=== PATIENT | male | born 1985 | race Caucasian/White ===

== ENCOUNTER 2023-02-03 01:14 | Emergency (ER) | payer BC ==
--- OUTSIDE RECORDS SUMMARY | 2023-02-03 01:19 | XMS REPORT | Continuity of Care Document ---
:1985 Author Organization [facility] t Address [address] [facility] [address] [place] [address] Care Team Providers Name Role Phone Unavailable Unavailable Unavailable Payers Payer Name Policy Type Policy Number Effective Date Expiration Date S ource Problems This patient has no known problems. Allergies, Adverse Reactions, Alerts Allergy Allergy Status Severity Reaction(s) Onset Inactive Treating Comm ents Source Name Type Date Date Clinician No Known DA Active U [facility] Allergie 12-28 s 00:00: [address] Medications This patient has no known medications. Procedures This patient has no known procedures. Results Test Description Test Time Test Comments Results Result Comments Source URINALYSIS COMPLETE 2018-12-29 08:05:00 Test Item Value Reference Range Interpretation Comme nts UA COLOR (test code = COLU) YELLOW YELLOW UA APPEARANCE (test code = APPU) CLEAR CLEAR UA GLUCOSE DIPSTICK (test code = DGLUU) NORMAL MG/DL NORMAL UA BILIRUBIN DIPSTICK (test code = BILU) NEGATIVE MG/DL NEGATIVE UA KETONE DIPSTICK (test code = KETU) NEGATIVE MG/DL NEGATIVE UA SPECIFIC GRAVITY (test code = SGU) 1.015 1.003-1.030 N UA BLOOD DIPSTICK (test code = ALONZO) 250 Krish/mm3 NEGATIVE A UA PH DIPSTICK (test code = CHRISTOPHE) 6.0 5.0-9.0 N UA PROTEIN DIPSTICK (test code = PROU) NEGATIVE MG/DL NEGATIVE UA UROBILINIOGEN DIPSTICK (test code = URO) NORMAL MG/DL NORMAL UA NITRITE DIPSTICK (test code = ELISE) NEGATIVE NEGATIVE UA LEUKOCYTE ESTERASE DIPSTICK (test code = LEUU) TRACE /mm3 NEGA TIVE A UA CULTURE NEEDED? (test code = UACULT) NO, WBC<10 Criteria Culture Chk SOURCE OF URINE: CLEAN CATCHUA [id number] 08:05:00 Test Item Value Reference Range Interpretation Comments UA RBC (test code = RBCU) >100 RBC/HPF 0-3 A UA WBC (test code = XWBCU) 5-9 WBC/HPF 0-5 A UA EPITHELIAL CELLS (test code = RARE EPI/HPF FEW EPIU) UA BACTERIA (test code = XBACU) RARE NONE UA MUCUS (test code = MUCU) SLIGHT #/LPF NONE SOURCE OF URINE: CLEAN CATCHURINALYSIS [id number] 07:46:00 Test Item Value Reference Range Interpretation Comments UA COLOR (test code = COLU) YELLOW YELLOW UA APPEARANCE (test code = CLEAR CLEAR APPU) UA GLUCOSE DIPSTICK (test code NORMAL MG/DL NORMAL = DGLUU) UA BILIRUBIN DIPSTICK (test NEGATIVE MG/DL NEGATIVE code = BILU) UA KETONE DIPSTICK (test code NEGATIVE MG/DL NEGATIVE = KETU) UA SPECIFIC GRAVITY (test code 1.015 1.003-1.030 N = SGU) UA BLOOD DIPSTICK (test code = 250 Krish/mm3 NEGATIVE A ALONZO) UA PH DIPSTICK (test code = 6.0 5.0-9.0 N CHRISTOPHE) UA PROTEIN DIPSTICK (test code NEGATIVE MG/DL NEGATIVE = PROU) UA UROBILINIOGEN DIPSTICK NORMAL MG/DL NORMAL (test code = URO) UA NITRITE DIPSTICK (test code NEGATIVE NEGATIVE = ELISE) UA LEUKOCYTE ESTERASE DIPSTICK TRACE /mm3 NEGATIVE A (test code = LEUU) UA CULTURE NEEDED? (test code Criteria Culture Chk = UACULT) SOURCE OF URINE: CLEAN CATCHUA [id number] 07:46:00 Test Item Value Reference Range Interpretation Comments UA RBC (test code = RBCU) RBC/HPF 0-3 UA WBC (test code = XWBCU) WBC/HPF 0-5 UA EPITHELIAL CELLS (test code = EPI/HPF FEW EPIU) UA BACTERIA (test code = XBACU) NONE SOURCE OF URINE: CLEAN CATCHURINALYSIS [id number] 07:46:00 Test Item Value Reference Range Interpretation Comments UA COLOR (test code = COLU) YELLOW YELLOW UA APPEARANCE (test code = CLEAR CLEAR APPU) UA GLUCOSE DIPSTICK (test code NORMAL MG/DL NORMAL = DGLUU) UA BILIRUBIN DIPSTICK (test NEGATIVE MG/DL NEGATIVE code = BILU) UA KETONE DIPSTICK (test code NEGATIVE MG/DL NEGATIVE = KETU) UA SPECIFIC GRAVITY (test code 1.015 1.003-1.030 N = SGU) UA BLOOD DIPSTICK (test code = 250 Krish/mm3 NEGATIVE A ALONZO) UA PH DIPSTICK (test code = 6.0 5.0-9.0 N CHRISTOPHE) UA PROTEIN DIPSTICK (test code NEGATIVE MG/DL NEGATIVE = PROU) UA UROBILINIOGEN DIPSTICK NORMAL MG/DL NORMAL (test code = URO) UA NITRITE DIPSTICK (test code NEGATIVE NEGATIVE = ELISE) UA LEUKOCYTE ESTERASE DIPSTICK TRACE /mm3 NEGATIVE A (test code = LEUU) UA CULTURE NEEDED? (test code Criteria Culture Chk = UACULT) SOURCE OF URINE: CLEAN CATCHUA [id number] 07:46:00 Test Item Value Reference Range Interpretation Comments UA RBC (test code = RBCU) RBC/HPF 0-3 UA WBC (test code = XWBCU) WBC/HPF 0-5 UA EPITHELIAL CELLS (test code = EPI/HPF FEW EPIU) UA BACTERIA (test code = XBACU) NONE SOURCE OF URINE: CLEAN CATCHBASIC METABOLIC [id number] 14:46:00 Test Item Value Reference Range Interpretation Comments SODIUM (test code = 142 MMOL/L 137-145 N NA) POTASSIUM (test code = 4.1 MMOL/L 3.5-5.1 N K) CHLORIDE (test code = 110 MMOL/L 98-107 H CL) CARBON DIOXIDE (test 25 MMOL/L 22-30 N code = CO2) GLUCOSE (test code = 99 MG/DL 74-106 N GLU) BLOOD UREA NITROGEN 9 MG/DL 9-20 N (test code = BUN) GLOMERULAR FILTRATION > 60 Report ing units: RATE (test code = GFR) ml/mi n/1.73 m2 (Modified MDRD Formula)Referen ce Range: > or = 6 0 ml/min/1.73 m2 CREATININE (test code 0.70 MG/DL 0.66-1.25 N = CREAT) CALCIUM (test code = 9.4 MG/DL 8.4-10.2 N CA) [id number] 14:46:00 Test Item Value Reference Range Interpretation Comments MAGNESIUM (test code = MAG) 2.2 MG/DL 1.6-2.3 N PROTHROMBIN [id number] 14:32:00 Test Item Value Reference Range Interpretation Comments PROTHROMBIN TIME 10.8 SECONDS 9.6-11.6 N PATIENT (test code = PTP) INTERNATIONAL NORMAL 1.0 0.8-1.1 N The INR is to be RATIO (test code = used only for INR) monitoring oral anticoagulantth erap y. INDICATION I NR VALUE ---- ---- ---- -------1. Prophylaxis, de ep venous thrombos is, including high risk surgery. 2.0 - 3.0 2. Prophylaxis, deep venous thrombosis, hip surgery, treatm ent for deep venous thrombosis or pulmonary prevention of systemic emboli sm in patients wit h valvular heart disease, atrial fibrillation, tissue heart va lve, or acute myocar dial infarction. 2.0 - 3.0 3. Rehab Office Coordinator al prosthesis hear t valves, recurre nt systemic emboli sm. 3.0 - 4.5 CBC W/AUTO [id number] 14:11:00 Test Item Value Reference Range Interpretation Comments WHITE BLOOD CELL (test code = 6.5 K/MM3 3.8-9.8 N WBC) RED BLOOD CELL (test code = 4.99 M/MM3 3.95-5.67 N RBC) HEMOGLOBIN (test code = HGB) 14.9 G/DL 12.4-16.7 N HEMATOCRIT (test code = HCT) 43.1 % 35.9-49.5 N MEAN CELL VOLUME (test code = 86 fL 81.7-96.1 N MCV) MEAN CELL HGB (test code = MCH) 29.9 pg 27.6-33.2 N MEAN CELL HGB CONCETRATION 34.6 % 32.9-35.5 N (test code = MCHC) RED CELL DISTRIBUTION WIDTH 12.3 % 12.1-15.2 N (test code = RDW) PLATELET COUNT (test code = 211 K/MM3 129-368 N PLT) MEAN PLATELET VOLUME (test code 9.1 fl 7.4-10.4 N = MPV) NEUTROPHIL % (test code = NT%) 47.3 % 43-75 N IMMATURE GRANULOCYTE % (test 0.2 % 0.0-2.0 N code = IG%) LYMPHOCYTE % (test code = LY%) 43.1 % 14-44 N MONOCYTE % (test code = MO%) 8.4 % 4-13 N EOSINOPHIL % (test code = EO%) 0.5 % 0-6 N BASOPHIL % (test code = BA%) 0.5 % 0-2 N NUCLEATED RBC % (test code = 0.0 % 0-1.0 N NRBC%) NEUTROPHIL # (test code = NT#) 3.09 K/mm3 2.0-7.6 N IMMATURE GRANULOCYTE # (test 0.01 x10 3/uL 0-0.03 N code = IG#) LYMPHOCYTE # (test code = LY#) 2.81 K/mm3 1.0-3.8 N MONOCYTE # (test code = MO#) 0.55 K/mm3 0.1-0.8 N EOSINOPHIL # (test code = EO#) 0.03 K/mm3 0.0-0.2 N BASOPHIL # (test code = BA#) 0.03 K/mm3 0.0-0.2 N NUCLEATED RBC # (test code = 0.00 K/mm3 0.0-0.1 N NRBC#) Notes Date/Time Note Provider Source 2018-12-29 13:44:00-00:00 [facility] ([facility]) Internal Medicine Prog. Note REPORT#:[id number] REPORT STATUS: Signed DATE:12/29/18 TIME: 1343 PATIENT: LIAN GERARD UNIT #: [id number] [facility] AGE: 33 SEX: M ATTEND: Ivan Valdez MD ADM AUTHOR: Iavn Valdez MD * ALL edits or amendments must be made on the Yoke/computer document * Subjective Comments: pain is controlled. NPO for surgery Review of Systems Constitutional: Denies: fever, generalized weakness. Respiratory: Denies: non productive cough, SOB. Cardiovascular: Denies: chest pain, edema. GI: Denies: abdominal pain. Objective General VS/I O: Vital Signs Date Temp Pulse Resp B/P B/P Mean Pulse Ox FiO2 12/28-12/29 98.1-98.3 57-78 14-18 113-161/66-81 82.5-104 95-97 Last Documented: Result Date Time Pulse Ox 97 12/29 1119 B/P 113/69 12/29 1119 B/P Mean 83.7 12/29 1119 O2 Delivery Room air 12/29 111 Temp 98.2 12/29 1119 Pulse 62 12/29 1119 Resp 14 12/29 1119 24 hour I O ending at 0700: 12/29 0700 12/28 1900 Intake Total 800.00 560 Output Total 250 760 Balance 550.00 -200 Intake, IV 800.00 Intake, Oral 560 Supplement Output, Urine 250 760 Patient 114 kg Weight Weight Stated/Reported Measurement Method Patient Weight Weight (lb): 251 Weight (oz): 5.23 Weight (kg): 114.000 Medications: Active Meds + DC'd Last 24 Hrs Ceftriaxone Sodium 1,000 MG Q24H IV Sodium Chloride 10 ML Morphine Sulfate 2 MG Q4H PRN PRN IV Acetaminophen 650 MG Q6H PRN PRN PO Ondansetron HCl 4 MG Q6H PRN PRN IV Sodium Chloride 1,000 ML Q7H IV Physical Exam General appearance: awake, oriented Head/Eyes: atraumatic Neck: no JVD Cardiovascular: regular rate rhythm Respiratory: clear to auscultation Abdomen: normal bowel sounds, soft, R flank tend erness, no rebound Genitourinary: CVA tenderness (Right) Extremities: Extremities: no edema Neuro/BUNCH BREAKER: oriented x 3, no motor deficits Results Findings/Data: Laboratory Tests 12/28/18 1349: [Embedded Image Not Available] Laboratory Tests 12/28 1349 Chemistry Sodium (137 - 145 MMOL/L) 142 Potassium (3.5 - 5.1 MMOL/L) 4.1 Chloride (98 - 107 MMOL/L) 110 H Carbon Dioxide (22 - 30 MMOL/L) 25 BUN (9 - 20 MG/DL) 9 Creatinine (0.66 - 1.25 MG/DL) 0.70 Glomerular Filtr Rate > 60 Glucose (74 - 106 MG/DL) 99 Calcium (8.4 - 10.2 MG/DL) 9.4 Magnesium (1.6 - 2.3 MG/DL) 2.2 Laboratory Tests 12/28 1349 Coagulation INR (0.8 - 1.1) 1.0 PT Patient/Control Mix (9.6 - 11.6 SECONDS) 10. 8 Laboratory Tests 12/28 1349 Hematology WBC (3.8 - 9.8 K/MM3) 6.5 RBC (3.95 - 5.67 M/MM3) 4.99 Hgb (12.4 - 16.7 G/DL) 14.9 Hct (35.9 - 49.5 %) 43.1 MCV (81.7 - 96.1 fL) 86 MCH (27.6 - 33.2 pg) 29.9 MCHC (32.9 - 35.5 %) 34.6 RDW (12.1 - 15.2 %) 12.3 Plt Count (129 - 368 K/MM3) 211 MPV (7.4 - 10.4 fl) 9.1 Neut % (Auto) (43 - 75 %) 47.3 Lymph % (Auto) (14 - 44 %) 43.1 Stanton % (Auto) (4 - 13 %) 8.4 Eos % (Auto) (0 - 6 %) 0.5 Baso % (Auto) (0 - 2 %) 0.5 Neut # (Auto) (2.0 - 7.6 K/mm3) 3.09 Lymph # (Auto) (1.0 - 3.8 K/mm3) 2.81 Stanton # (Auto) (0.1 - 0.8 K/mm3) 0.55 Eos # (Auto) (0.0 - 0.2 K/mm3) 0.03 Baso # (Auto) (0.0 - 0.2 K/mm3) 0.03 Immature Gran % (0.0 - 2.0 %) 0.2 Nucleated RBC % (0 - 1.0 %) 0.0 Nucleated RBCs # (Man) (0.0 - 0.1 K/mm3) 0.00 Laboratory Tests 12/29 0710 Urines Urine Color (YELLOW) YELLOW Urine Appearance (CLEAR) CLEAR Urine pH (5.0 - 9.0) 6.0 Ur Specific Jet (1.003 - 1.030) 1.015 Urine Protein (NEGATIVE MG/DL) NEGATIVE Urine Glucose (UA) (NORMAL MG/DL) NORMAL Urine Ketones (NEGATIVE MG/DL) NEGATIVE Urine Blood (NEGATIVE Krish/mm3) 250 H Urine Nitrite (NEGATIVE) NEGATIVE Urine Bilirubin (NEGATIVE MG/DL) NEGATIVE Urine Urobilinogen (NORMAL MG/DL) NORMAL Ur Leukocyte Esterase (NEGATIVE /mm3) TRACE H Urine RBC (0 - 3 RBC/HPF) >100 H Urine WBC (0 - 5 WBC/HPF) 5-9 H Ur Epithelial Cells (FEW EPI/HPF) RARE Urine Bacteria (NONE) RARE Urine Mucus (NONE #/LPF) SLIGHT Urine Culture Screen (Culture Chk Criteria) NO, WBC<10 Diagnosis, Assessment Plan Free Text DxA P Notes Free Text DxA P Notes: A/P: 1. R flank pain due to Renal stone ( R ureteral) : cw IVF, pain meds prn empiric abx. Dr Minor cole the pt. plan for ESWL, lithotripsy and stent 2. R ureteral stone: as above WBC wnl 3. Hydronephrosis: 2ry to ureteral stone: as abo ve. BUN, Cr wnl 4. dispo: DC home after surgery Electronically Signed by Ivan Valdez MD on 02/02 11/20 at 1923 RPT #:[id number] END OF REPORT 2018-12-28 17:20:00-00:00 [id number] [place] [id number] PATIENT NAME: LIAN GERARD ADMIT DATE: 12/28/18 ACCOUNT NO: [id number] ROOM NO: Z[facility] AGE: 33 REPORT TYPE: CONSULTATION REPORT SEX: M ADMITTING PHYSICIAN:Ivan Valdez MD ATTENDING PHYSICIAN:Ivan Valdez MD CONSULTATION DATE: 12/28/2018 CONSULTING PHYSICIAN: Jaylen Gaxiola MD REASON FOR CONSULTATION: HISTORY OF PRESENT ILLNESS: The patient is a 33- year-old with a history of stones, came in the Emergency Room in [facility]. We have severe flank pain that had been going on. He is having so much pain , lot of nausea and also some vomiting and denied any voiding problems. He was further evaluated and worked up and found to have a 6 x 5 mm mid ureteral stone causing hydro and a lot of pain. He was subsequently transferred over here to Dr. Josse hancock's service here at [facility]. I was called in for evaluation. The pat darion currently has a little bit better given the pain medication little more stable. PAST MEDICAL HISTORY: Positive for stones. No di abetes, hypertension, cholesterol. PAST SURGICAL HISTORY: History of ureteroscopy i n the past and stones. ALLERGIES: HE HAS NO KNOWN DRUG ALLERGIES. MEDICATIONS: See SEP. REVIEW OF SYSTEMS: Positive for GI. Negative for neuro. Negative psych. Negative for respiratory. Negative for skin. PHYSICAL EXAMINATION: GENERAL: A male patient in no apparent distress. He is afebrile. VITAL SIGNS: Stable. Blood pressure is 141/67. HEENT: Atraumatic. ABDOMEN: Soft. BACK: Right CVA tenderness. NEUROLOGIC: Grossly intact. SKIN: Otherwise normal. GENITOURINARY: Normal. LABORATORY DATA AND DIAGNOSTIC STUDIES: CT scan, which revealed a 6 x 4 mm right mid ureteral calculi. His laborato ry studies include a creatinine, which is 0.7 and a white blood cell count 6.5. IMPRESSION AND PLAN: A 33-year-old with a histor y of hydro and back pain PATIENT NAME: LIAN GERARD secondary mid ureteral calculi. I had a long discussion with the patient about the options and we can try a nd send him for an ESWL main and putting up a stent also. All the risks and complications of all the procedure were discussed in great detail, and he understood and agre ed. So we will continue to monitor him and set him up for lithotripsy tomorrow. Dictated By: Jaylen aGxiola MD WT: HARLEY:BULMARO/PASCUAL. Conf#: [id number]/DID#: [id number] Authenticated by Jaylen Gaxiola MD On 06:15:15 PM Electronically Signed by Jaylen Gaxiola MD on 0 12/29/18 at 1815 PATIENT NAME: LIAN GERARD 2018-12-28 14:37:00-00:00 [facility] History Physical - Adult REPORT#:[id number] REPORT STATUS: Signed DATE:12/28/18 TIME: 1437 PATIENT: LIAN GERARD UNIT #: [id number] ROOM/BED: [address] : 87 AGE: 33 SEX: M ATTEND: Ivan Valdez MD ADM AUTHOR: Ivan Valdez MD * ALL edits or amendments must be made on the Yoke/computer document * History of Present Illness HPI Chief complaint: kidney stone PCP: PCP: Jaylen Gaxiola MD HPI: 33 yr old M pt with prior hx of renal stones, no other medical problems. pt was sent from [facility] of severe R flank pain d ue to R mid ureteral stone. workup included CT scan showed 6X5 mm R mid ureteric stone causing hydronephrosis. pt denies fever or dysuria or hematuria. denies frequency. he also had some NV. his pain is better now that he is on morphine pr n and IVF History Past medical history: Reports: Kidney disease/stones. Past surgical history: Reports: Lithotripsy (ureteroscopy). Alcohol use: Denies EtOH use Drug use: Denies recreational drugs Other social history: Employed Medication/Allergy-Vaccine Hx Home Medications: ACETAMINOPHEN/CODEINE (TYLENOL WITH CODE INE #3 300/30 MG) 1 TAB PO Q4H PRN PRN PAIN AMPHETAMINE/DEXTROAMPHETAMINE SALTS (ADDERALL) 2 0 MG PO DAILY Allergies: Coded Allergies: No Known Allergies (12/28/18) Ambulatory status: Independent Review of Systems Respiratory: Denies: non productive cough, SOB. Cardiovascular: Denies: chest pain, edema. GI: Reports: nausea, vomiting. : Reports: flank pain. Denies: dysuria, hematuria, nocturia. Neuro: Denies: dizziness, headache. All systems rev neg: except as marked Physical Exam VS/I O Patient Weight Weight (lb): Weight (oz): Weight (kg): General appearance: awake, oriented Head/Eyes: atraumatic ENT: moist mucosal membranes Neck: no JVD Cardiovascular: regular rate rhythm Respiratory: clear to auscultation, no distress Abdomen/GI: CVA tenderness (Right), active bowel sounds, soft Genitourinary: flank pain (Right), no hernia Extremities: moves all, no peripheral edema Neuro/BUNCH BREAKER: alert, oriented X 3, no motor deficit s Results Findings/Data: Laboratory Tests: 12/28 1349 Coagulation INR (0.8 - 1.1) 1.0 PT Patient/Control Mix (9.6 - 11.6 SECONDS) 10. 8 Hematology WBC (3.8 - 9.8 K/MM3) 6.5 RBC (3.95 - 5.67 M/MM3) 4.99 Hgb (12.4 - 16.7 G/DL) 14.9 Hct (35.9 - 49.5 %) 43.1 MCV (81.7 - 96.1 fL) 86 MCH (27.6 - 33.2 pg) 29.9 MCHC (32.9 - 35.5 %) 34.6 RDW (12.1 - 15.2 %) 12.3 Plt Count (129 - 368 K/MM3) 211 MPV (7.4 - 10.4 fl) 9.1 Neut % (Auto) (43 - 75 %) 47.3 Lymph % (Auto) (14 - 44 %) 43.1 Stanton % (Auto) (4 - 13 %) 8.4 Eos % (Auto) (0 - 6 %) 0.5 Baso % (Auto) (0 - 2 %) 0.5 Neut # (Auto) (2.0 - 7.6 K/mm3) 3.09 Lymph # (Auto) (1.0 - 3.8 K/mm3) 2.81 Stanton # (Auto) (0.1 - 0.8 K/mm3) 0.55 Eos # (Auto) (0.0 - 0.2 K/mm3) 0.03 Baso # (Auto) (0.0 - 0.2 K/mm3) 0.03 Immature Gran % (0.0 - 2.0 %) 0.2 Nucleated RBC % (0 - 1.0 %) 0.0 Nucleated RBCs # (Man) (0.0 - 0.1 K/mm3) 0.00 Diagnosis, Assessment Plan Free Text DxA P Notes Free Text DxA P Notes: A/P: 1. R flank pain due to Renal stone ( R ureteral) : cw IVF, pain meds prn empiric abx. Dr Minor cole the pt. plan for ESWL, lithotripsy and stent in the am 2. R ureteral stone: as above WBC wnl 3. Hydronephrosis: 2ry to ureteral stone: as abo ve. DW pt and DW Dr Gaxiola Electronically Signed by Ivan Valdez MD on 02/02 11/20 at 1922 RPT #:[id number] END OF REPORT
[2023-02-03] MEDS ORDERED: KETOROLAC 30 MG/ML INJ ONE (02:27)
[2023-02-03] MEDS ORDERED: MORPHINE 4 MG/ML SYR ONE (02:27)
[2023-02-03] MEDS ORDERED: FAMOTIDINE 20 MG/2 ML VIAL IV ONE (02:27)
[2023-02-03] MEDS ORDERED: NA CHLORIDE 0.9% 1,000 ML ONE (02:27)
[2023-02-03 03:11] LABS: Absolute Lymphocytes (CBC) 2.1 K/uL (0.7-4.9); Hematocrit 45.8 % (39.6-49.0); Lymphocytes % 21.1 % (15.3-44.8); MCV 88.4 fL (80-100); MPV 7.8 fL (7.6-11.3); RBC Red Blood Cell Count 5.18 M/uL (4.33-5.43)
[2023-02-03 03:28] LABS: Albumin 4.3 g/dL (3.4-5.0); Bilirubin Total 0.5 mg/dL (0.2-1.0); Magnesium 2.4 mg/dL (1.6-2.4); Potassium 3.6 mEq/L (3.5-5.1); Protein, Total 7.8 g/dL (6.4-8.2)
[2023-02-03] MEDS ORDERED: TAMSULOSIN 0.4 MG SR CAP ONE (04:03)
[2023-02-03 05:23] LABS: Specific Gravity 1.013 (1.005-1.030); Urine Bacteria <20 /HPF (<20); Urine Bilirubin NEGATIVE (Negative); Urine Blood 3+ (OVER) (Negative); Urine Clarity Turbid (Clear); Urine Color Light-Yellow (Yellow); Urine Glucose NEGATIVE (Negative); Urine Mucus Slight /HPF (None Seen); Urine Protein NEGATIVE (Negative); Urine RBC >50 /HPF (None Seen); Urine Urobilinogen Normal (Normal)
--- NOTE | 2023-02-03 06:00 | ER ---
Nurse's Notes [facility] Name: Avtar Harrison Age: 37 yrs Sex: Male : 1985 Arrival Date: 02/03/2023 Time: 01:14 Bed 17 Private MD: Diagnosis: Hydronephrosis with renal and ureteral calculous obstruction;Unspecified renal colic Presentation: 02/03 02:08 Chief complaint: Patient states: I am having kidney pain on my left side for the past jb4 day. I have a history of kidney stones. Coronavirus screen: At this time, the client does not indicate any symptoms associated with coronavirus-19. Ebola Screen: No symptoms or risks identified at this time. Initial Sepsis Screen: Does the patient meet any 2 criteria? No. Patient's initial sepsis screen is negative. Does the patient have a suspected source of infection? No. Patient's initial sepsis screen is negative. Risk Assessment: Do you want to hurt yourself or someone else? Patient reports no desire to harm self or others. Onset of symptoms was February 03, 2023. Transition of care: patient was not received from another setting of care. 02:08 Method Of Arrival: Ambulatory jb4 02:08 Acuity: MARILYN 3 jb4 Historical: - Allergies: 02:09 No Known Allergies; jb4 - Home Meds: 02:09 Efexor [Active]; Adderall XR Oral [Active]; jb4 - PMHx: 02:09 Adhd; Kidney stones; jb4 - PSHx: 02:09 BARBIE hips; jb4 - Immunization history:: Adult Immunizations up to date. - Social history:: Smoking status: Patient denies any tobacco usage or history of. Patient uses alcohol, CBD. Screenin:[facility] ED Fall Risk Assessment (Adult) History of falling in the last 3 months, jb4 including since admission No falls in past 3 months (0 pts) Confusion or Disorientation No (0 pts) Score/Fall Risk Level 0 - 2 = Low Risk Oriented to surroundings, Maintained a safe environment. Abuse screen: Denies threats or abuse. Nutritional screening: No deficits noted. Tuberculosis screening: No symptoms or risk factors identified. Assessment: 02:00 General: Appears in no apparent distress. comfortable, Behavior is calm, cooperative, jb4 appropriate for age. Pain: Complains of pain in left mid back and left lower quadrant Pain radiates to left lower quadrant Pain currently is 6 out of 10 on a pain scale. Neuro: Level of Consciousness is awake, alert, obeys commands, Oriented to person, place, time, situation. Cardiovascular: Patient's skin is warm and dry. Respiratory: Airway is patent Respiratory effort is even, unlabored, Respiratory pattern is regular, symmetrical. GI: No signs and/or symptoms were reported involving the gastrointestinal system. : No signs and/or symptoms were reported regarding the genitourinary system. EENT: No signs and/or symptoms were reported regarding the EENT system. Derm: Skin is intact, Skin is pink, warm \T\ dry. Musculoskeletal: Circulation, motion, and sensation intact. Range of motion: intact in all extremities. 03:00 Reassessment: Patient appears in no apparent distress at this time. Patient and/or jb4 family updated on plan of care and expected duration. Pain level reassessed. Patient is alert, oriented x 3, equal unlabored respirations, skin warm/dry/pink. 04:00 Reassessment: Patient appears in no apparent distress at this time. Patient and/or jb4 family updated on plan of care and expected duration. Pain level reassessed. Patient is alert, oriented x 3, equal unlabored respirations, skin warm/dry/pink. 05:20 Reassessment: Patient appears in no apparent distress at this time. Patient and/or jb4 family updated on plan of care and expected duration. Pain level reassessed. Patient is alert, oriented x 3, equal unlabored respirations, skin warm/dry/pink. 06:16 Reassessment: Patient appears in no apparent distress at this time. Patient and/or jb4 family updated on plan of care and expected duration. Pain level reassessed. Patient is alert, oriented x 3, equal unlabored respirations, skin warm/dry/pink. Vital Signs: 02:08 BP 124 / 77; Pulse 70; Resp 16; Pulse Ox 100% on R/A; Weight 110.22 kg; Height 6 ft. 0 jb4 in. ; 02:30 BP 130 / 80; Pulse 70; Resp 16; Pulse Ox 99% on R/A; jb4 03:50 BP 116 / 75; Pulse 67; Resp 16; Pulse Ox 97% on R/A; jb4 05:20 BP 123 / 74; Pulse 63; Resp 16; Pulse Ox 99% on R/A; jb4 06:16 BP 126 / 62; Pulse 61; Resp 16; Pulse Ox 98% on R/A; jb4 02:08 Body Mass Index 32.96 (110.22 kg, 182.88 cm) jb4 ED Course: 01:19 Patient arrived in ED. ag3 01:20 Lil[facility] Major [facility]C [facility] snw 01:20 Navin Flaherty MD is Attending Physician. snw 02:08 Familia Kellogg, NICOLAS is Primary Nurse. jb4 02:09 Triage completed. jb4 02:09 Arm band placed on right wrist. jb4 02:35 Magnesium Sent. bc6 02:35 CBC with Diff Sent. bc6 02:35 CMP Sent. bc6 02:35 Inserted saline lock: 20 gauge in right antecubital area, using aseptic technique. bc6 Blood collected. 03:04 CT Stone Protocol In Process Unspecified. EDMS 03:50 Patient has correct armband on for positive identification. Bed in low position. Call jb4 light in reach. Side rails up X 1. 05:59 Kg Dodge MD is Referral Physician. sp4 06:16 No provider procedures requiring assistance completed. IV discontinued, intact, jb4 bleeding controlled, No redness/swelling at site. Pressure dressing applied. Administered Medications: 02:47 Drug: NS 0.9% IV 1000 ml Route: IV; Rate: 1 bolus; Site: right antecubital; jb4 02:47 Drug: Famotidine IVP 20 mg Route: IVP; Site: right antecubital; jb4 02:47 Drug: TORadol - Ketorolac IVP 15 mg Route: IVP; Site: right antecubital; jb4 02:47 Drug: morphine IVP or IV 4 mg Route: IVP; Infused Over: 4 mins; Site: right antecubital;jb4 03:56 Drug: Flomax PO 0.4 mg Route: PO; jb4 Medication: 03:50 VIS not applicable for this client. jb4 Outcome: 05:59 Discharge ordered by . sp4 06:16 Discharged to home ambulatory. jb4 06:16 Condition: stable 06:16 Discharge instructions given to patient, Instructed on discharge instructions, follow up and referral plans. medication usage, Demonstrated understanding of instructions, follow-up care, medications, Prescriptions given X 5 06:17 Patient left the ED. jb4 Signatures: Dispatcher [employer] EDMS Lilian Major, FLIGHT KITCHEN MANAGER-C FLIGHT KITCHEN MANAGER-Csnw Familia Kellogg, RN RN jb4 Kimberly Zavala ag3 Maria D Younger bc6 Navin Flaherty MD MD sp4
--- NOTE | 2023-02-03 06:00 | EDPHYS ---
Physician Documentation [facility] Name: Avtar Harrison Age: 37 yrs Sex: Male : 1985 Arrival Date: 02/03/2023 Time: 01:14 Bed 17 Private MD: ED Physician Navin Flaherty HPI: 02/03 02:07 This 37 yrs old Male presents to ER via Unassigned with complaints of Back Pain. snw 02:07 The patient presents with pain that is acute. The symptoms are located in the left mid snw back. Onset: The symptoms/episode began/occurred gradually, 4 day(s) ago, and became persistent. The pain does not radiate. Associated signs and symptoms: Pertinent positives: hematuria, nausea. Severity of symptoms: At their worst the symptoms were moderate, severe. The patient has experienced similar episodes in the past, several times. It is unknown whether or not the patient has recently seen a physician. takes Metamucil, Adderall, and Effexor. Historical: - Allergies: 02:09 No Known Allergies; jb4 - Home Meds: 02:09 Efexor [Active]; Adderall XR Oral [Active]; jb4 - PMHx: 02:09 Adhd; Kidney stones; jb4 - PSHx: 02:09 BARBIE hips; jb4 - Immunization history:: Adult Immunizations up to date. - Social history:: Smoking status: Patient denies any tobacco usage or history of. Patient uses alcohol, CBD. ROS: 02:06 Constitutional: Negative for fever, chills, and weight loss, Eyes: Negative for injury, snw pain, redness, and discharge, ENT: Negative for injury, pain, and discharge, Neck: Negative for injury, pain, and swelling, Cardiovascular: Negative for chest pain, palpitations, and edema, Respiratory: Negative for shortness of breath, cough, wheezing, and pleuritic chest pain, : Negative for injury, bleeding, discharge, and swelling, MS/Extremity: Negative for injury and deformity, Skin: Negative for injury, rash, and discoloration, Neuro: Negative for headache, weakness, numbness, tingling, and seizure, Psych: Negative for depression, anxiety, suicide ideation, homicidal ideation, and hallucinations. 02:06 Abdomen/GI: Positive for nausea. 02:06 Back: Positive for flank pain, on the left. Exam: 02:06 Constitutional: This is a well developed, well nourished patient who is awake, alert, snw and in no acute distress. Head/Face: Normocephalic, atraumatic. Eyes: Pupils equal round and reactive to light, extra-ocular motions intact. Lids and lashes normal. Conjunctiva and sclera are non-icteric and not injected. Cornea within normal limits. Periorbital areas with no swelling, redness, or edema. ENT: Nares patent. No nasal discharge, no septal abnormalities noted. Tympanic membranes are normal and external auditory canals are clear. Oropharynx with no redness, swelling, or masses, exudates, or evidence of obstruction, uvula midline. Mucous membranes moist. Neck: Trachea midline, no thyromegaly or masses palpated, and no cervical lymphadenopathy. Supple, full range of motion without nuchal rigidity, or vertebral point tenderness. No Meningismus. Chest/axilla: Normal chest wall appearance and motion. Nontender with no deformity. No lesions are appreciated. Cardiovascular: Regular rate and rhythm with a normal S1 and S2. No gallops, murmurs, or rubs. Normal PMI, no JVD. No pulse deficits. Respiratory: Lungs have equal breath sounds bilaterally, clear to auscultation and percussion. No rales, rhonchi or wheezes noted. No increased work of breathing, no retractions or nasal flaring. Abdomen/GI: Soft, non-tender, with normal bowel sounds. No distension or tympany. No guarding or rebound. No evidence of tenderness throughout. Back: No spinal tenderness. No costovertebral tenderness. Full range of motion. Skin: Warm, dry with normal turgor. Normal color with no rashes, no lesions, and no evidence of cellulitis. MS/ Extremity: Pulses equal, no cyanosis. Neurovascular intact. Full, normal range of motion. Neuro: Awake and alert, GCS 15, oriented to person, place, time, and situation. Cranial nerves II-XII grossly intact. Motor strength 5/5 in all extremities. Sensory grossly intact. Cerebellar exam normal. Normal gait. Psych: Awake, alert, with orientation to person, place and time. Behavior, mood, and affect are within normal limits. Vital Signs: 02:08 BP 124 / 77; Pulse 70; Resp 16; Pulse Ox 100% on R/A; Weight 110.22 kg; Height 6 ft. 0 jb4 in. ; 02:30 BP 130 / 80; Pulse 70; Resp 16; Pulse Ox 99% on R/A; jb4 03:50 BP 116 / 75; Pulse 67; Resp 16; Pulse Ox 97% on R/A; jb4 05:20 BP 123 / 74; Pulse 63; Resp 16; Pulse Ox 99% on R/A; jb4 06:16 BP 126 / 62; Pulse 61; Resp 16; Pulse Ox 98% on R/A; jb4 02:08 Body Mass Index 32.96 (110.22 kg, 182.88 cm) jb4 MDM: 01:30 Patient medically screened. snw 02:41 Differential diagnosis: chronic back pain, Hydronephrosis Ureterolithiasis. Data snw reviewed: vital signs, nurses notes. I considered the following discharge prescriptions or medication management in the emergency department Medications were administered in the Emergency Department. See MAR. Historians other than the Patient: Spouse/Significant Other: . Counseling: I had a detailed discussion with the patient and/or guardian regarding: the historical points, exam findings, and any diagnostic results supporting the discharge/admit diagnosis, lab results, radiology results, the need for outpatient follow up, for definitive care. Special discussion: Based on the history and exam findings, there is no indication for further emergent testing or inpatient evaluation. I discussed with the patient/guardian the need to see the primary care provider for further evaluation of the symptoms. I discussed with the patient/guardian the need to see the urologist for further evaluation of the symptoms. 03:20 Response to treatment: the patient's symptoms have mildly improved after treatment, the snw patient's symptoms have markedly improved after treatment. Awaiting: labs results, CT scan results. Transition of care: After a detail discussion of the patient's case, care is transferred to Navin Flaherty MD. 03:42 ED course: FINDINGS: Lung Bases: The visualized lung bases are clear. Bones: sp4 Osteoarthritic change of the hips. Abdomen: Liver: The liver has normal size and density. Gallbladder: No calcified gallstones. Spleen, Pancreas, and Adrenal Glands: The spleen, pancreas, and adrenal glands are unremarkable. Kidneys: Bilateral nonobstructing nephrolithiasis. There is a 0.3 cm obstructing calculus in the distal left ureter producing mild left hydroureter and hydronephrosis. No right-sided hydroureter nephrosis. Vasculature: The aorta and IVC have normal caliber and position. Stomach: The stomach and duodenum have normal course. Other: No free intraperitoneal air. No free fluid or lymphadenopathy. Tiny fat-containing umbilical hernia. Pelvis: Bladder: Urinary bladder is unremarkable. Bowel: No dilated loops of large or small bowel. Large amount of stool. Appendix: Normal appendix. Pelvis: Prostate is not enlarged. IMPRESSION: 1. There is a 0.3 cm obstructing calculus in the distal left ureter producing mild left hydroureter and hydronephrosis. 2. Bilateral nonobstructing nephrolithiasis.. 05:53 ED course: 3 mm left ureteral calculus will likely pass by itself. Will prescribe sp4 Flomax, tramadol, Toradol, and as needed Zofran. Will advise patient to see urologist in nonemergent fashion. . 02/03 02:06 Order name: CBC with Diff; Complete Time: 03:14 snw 02/03 02:06 Order name: CMP; Complete Time: 03:42 snw 02/03 02:06 Order name: Magnesium; Complete Time: 03:42 snw 02/03 03:42 Order name: Urinalysis W/Microscopic; Complete Time: 05:52 sp4 02/03 02:06 Order name: CT Stone Protocol snw 02/03 02:06 Order name: IV Saline Lock; Complete Time: 02:35 snw 02/03 02:06 Order name: Labs collected and sent; Complete Time: 02:35 snw Administered Medications: 02:47 Drug: NS 0.9% IV 1000 ml Route: IV; Rate: 1 bolus; Site: right antecubital; jb4 02:47 Drug: Famotidine IVP 20 mg Route: IVP; Site: right antecubital; jb4 02:47 Drug: TORadol - Ketorolac IVP 15 mg Route: IVP; Site: right antecubital; jb4 02:47 Drug: morphine IVP or IV 4 mg Route: IVP; Infused Over: 4 mins; Site: right antecubital;jb4 03:56 Drug: Flomax PO 0.4 mg Route: PO; jb4 Disposition: 03:57 Co-signature as Attending Physician, Navin Flaherty MD I agree with the assessment sp4 and plan of care. I reviewed the patient's care provided by Advanced Practice Provider \T\ agree w/ the diagnosis \T\ care plan. I personally saw the pt \T\ performed a substantive portion of the visit, incldng all aspects of the (History/Exam/Medical Decision Making). Disposition Summary: 02/03/23 05:59 Discharge Ordered Location: Home sp4 Condition: Stable sp4 Diagnosis - Hydronephrosis with renal and ureteral calculous obstruction sp4 - Unspecified renal colic sp4 Followup: snw - With: Emergency Department - When: As needed - Reason: Worsening of condition Followup: snw - With: Private Physician - When: 1 - 2 days - Reason: Recheck today's complaints, Continuance of care, Re-evaluation by your physician Followup: snw - With: - When: 1 week - Reason: Recheck today's complaints, Continuance of care Discharge Instructions: - Discharge Summary Sheet snw - Kidney Stones snw Forms: - Work release form snw - Patient Portal Instructions sp4 Prescriptions: - acetaminophen-codeine 300-30 mg Oral tablet - take 1 tablet by ORAL route every 4 hours as needed for pain; 20 tablet; snw Refills: 0, Product Selection Permitted - magnesium glycinate-mag oxide - take 1 tablet by ORAL route Every night; 90 tablet; Refills: 0, Product snw Selection Permitted - promethazine 25 mg Oral Tablet - take 1 tablet by ORAL route every 6 hours As needed; 20 tablet; Refills: 0, snw Product Selection Permitted - Flomax 0.4 mg Oral capsule - take 1 capsule by ORAL route daily; 30 capsule; Refills: 0, Product Selection sp4 Permitted - ketorolac 10 mg Oral tablet - take 1 tablet by ORAL route every 8 hours PRN pain; 30 tablet; Refills: 0, sp4 Product Selection Permitted Signatures: Dispatcher [employer] EDLilian Costa, JEFF-C DIE DRAWING CHECKER-Csnw Familia Kellogg, RN RN jb4 Navin Flaherty MD MD sp4 Corrections: (The following items were deleted from the chart) 04:55 02:07 Urinalysis+U.LAB.BRZ ordered. EDMS EDMS
[2023-02-03 06:33] VITALS: BP 126/62; O2SAT 98
--- NOTE | 2023-02-03 16:02 | RAD REPORT ---
EXAM DESCRIPTION: CT - Stone Protocol - 02/03/2023 6:26 am CLINICAL HISTORY: HEMATURIA COMPARISON: None Available. TECHNIQUE: CT of the abdomen and pelvis without IV contrast. Evaluation of the solid organs and vasc ulature is suboptimal due to lack of IV contrast. This exam was performed according to our department al dose-optimization program, which includes automated exposure control, adjustment of the mA and/or kV according to patient size and/or use of iterative reconstruction technique. FINDINGS: Lung Bases: The visualized lung bases are clear. Bones: Osteoarthritic change of the hips. Abdomen: Liver: The liver has normal size and density. Gallbladder: No calcified gallstones. Spleen, Pancreas, and Adrenal Glands: The spleen, pancreas, and adrenal glands are unremarkable. Kidneys: Bilateral nonobstructing nephrolithiasis. There is a 0.3 cm obstructing calculus in the dist al left ureter producing mild left hydroureter and hydronephrosis. No right-sided hydroureter nephros is. Vasculature: The aorta and IVC have normal caliber and position. Stomach: The stomach and duodenum have normal course. Other: No free intraperitoneal air. No free fluid or lymphadenopathy. Tiny fat-containing umbilic al hernia. Pelvis: Bladder: Urinary bladder is unremarkable. Bowel: No dilated loops of large or small bowel. Large amount of stool. Appendix: Normal appendix. Pelvis: Prostate is not enlarged. IMPRESSION: 1. There is a 0.3 cm obstructing calculus in the distal left ureter producing mild lef t hydroureter and hydronephrosis. 2. Bilateral nonobstructing nephrolithiasis. Electronically signed by: Avtar Valdez 02/03/2023 3:32 AM CDT Due to temporary technical issues with the PACS/Fluency reporting system, reports are being signed by the in house radiologists without review as a courtesy to insure prompt reporting. The interpreting radiologist is fully responsible for the content of the report.
== END 2023-02-03 06:17 | disposition home or self-care (01) ==
LOC: ER 01:14
DX: N13.2 Hydronephrosis with renal and ureteral calculous obstruction (principal); N23 Unspecified renal colic; Z87.442 Personal history of urinary calculi
CPT/HCPCS: 85025; 81001; 36415; 83735; 80053; 76377; 74176; J7030

== ENCOUNTER 2023-03-09 07:31 | Day surgery (SDC) | payer BC ==
[2023-03-09] MEDS ORDERED: Ringers Lactate 1,000 ML IV ONE (08:03)
[2023-03-09] MEDS ORDERED: propofoL 200 MG/20 ML VIAL IV ONE (09:12)
[2023-03-09] MEDS ORDERED: LIDOCAINE 1% MPF 5 ML VIAL ONE (09:13)
[2023-03-09] MEDS ORDERED: ONDANSETRON 4 MG/2 ML VIAL ONE ×2 (09:13→11:43)
[2023-03-09] MEDS ORDERED: MIDAZOLAM HCL 2 MG/2 ML INJ ONE (09:13)
[2023-03-09] MEDS ORDERED: dexAMETHasone 10 MG/ML VIAL ONE (09:13)
[2023-03-09] MEDS ORDERED: FENTANYL CITR 100 MCG/2 ML ONE (09:13)
[2023-03-09] MEDS ORDERED: KETOROLAC 30 MG/ML INJ ONE (09:13)
[2023-03-09] MEDS: CEFAZOLIN SODIUM 2 GM/VIAL ONE ×2 (09:40→09:41)
[2023-03-09] MEDS ORDERED: ROCURONIUM 50 MG/5 ML VIAL IV ONE (09:47)
[2023-03-09] MEDS ORDERED: Mastisol Adhesive Liq ONE (10:16)
[2023-03-09] MEDS ORDERED: GLYCOPYRROLATE 0.2 MG/ML SYR ONE (10:21)
[2023-03-09] MEDS ORDERED: NEOSTIGMINE 1 MG/ML -10 ML VIAL ONE (10:23)
[2023-03-09] MEDS ORDERED: PHENAZOPYRIDINE 100MG TAB PO ONE ×2 (10:49→11:43)
[2023-03-09] MEDS ORDERED: CODEINE 30MG/APAP 300MG TAB PO PRN (10:49)
[2023-03-09] MEDS ORDERED: MEPERIDINE HCL 25 MG/ML SYR ONE (10:55)
--- NOTE | 2023-03-09 11:00 | RAD REPORT ---
EXAM DESCRIPTION: RAD - Urethrocystogrphy Retrograde - 03/09/2023 10:39 am CLINICAL HISTORY: LT STENT PLACEMENT COMPARISON: No comparisons FINDINGS: Total fluoro time: 0.2 minutes
[2023-03-09] MEDS ORDERED: CODEINE 30MG/APAP 300MG TAB ONE (11:43)
--- NOTE | 2023-03-09 12:06 | OP ---
Surgeon: SUSAN OLIVEROS Preoperative Diagnosis: Left nephroureterolithiasis. Postoperative Diagnoses: 1.History of left ureterolithiasis. 2.Left nephrolithiasis. Principal Procedures: 1.Cystoscopy. 2.Left retrograde pyelography. 3.Left semi-rigid ureteroscopy. 4.Left tethered ureteral stent placement. Indication For Procedure: Mr. Harrison is a 37-year-old gentleman with anxiety and depression and history of recurrent ureterolithiasis requiring surgical intervention with 3 mm distal ureteral calcu dale present on the left and 3 mm nonobstructing left nephrolithiasis with persistent mild left flank pain. He had not observed stone passage and on 02/23/2023 had undergone a repeat renal ultrasound, w hich showed some mild dilatation of an upper pole calyx. Because of the potential for ongoing obstru ction, he was then counseled on the potential need for surgical intervention. Unfortunately, between then and now, he still had not passed the stone. On repeat review of the CT imaging, both 3 mm guillermina l calculi were within the papilla of the calices and thus unlikely to be amenable to laser lithotrips y. Procedure In Detail: The patient was consented in the preoperative holding area before being transfe rred to the operative suite where general anesthesia was induced. He was given Ancef 2 g IV antimicr obial prophylaxis and pneumo boots were provided for DVT prophylaxis. He was placed in the lithotomy position, padded and secured to the table appropriately, and his genitalia were prepped with Hibicle ns before being draped in standard fashion. The case was begun using a 22-Nigerien rigid cystoscope to traverse the urethra and into the bladder with ease. Of note, there was no significant prostatic ur ethral obstruction. The bladder was entered and decompressed of urine before being refilled with amie rile saline and surveyed in its entirety. The ureteral orifices were orthotopic in location, and the urine was clear. There was no calculus present or visible within the bladder. As a result, I then cannulated the left ureteral orifice using a 5-Nigerien ureteral access catheter and performed a retrog rade pyelogram. Left retrograde pyelography: Using a 70:30 mixture of Omnipaque and saline, contrast was injected via the lumen of the 5-Nigerien ur eteral access catheter and passed with ease up the distal into the mid and proximal ureter before ent ering the renal pelvis and filling the calices without any sign of ureteral nephrosis, pelviectasis, or caliectasis. However, given the small size of his ureteral calculus and the potential for partial obstruction, I then passed the Sensor wire via the 5-Nigerien ureteral access catheter, coiling it in the upper pole calyx and leaving it in place, removing the 5-Nigerien ureteral access catheter. I then removed the cystoscope after decompressing his bladder of fluid and urine, and then utilized a semi- rigid ureteroscope under direct vision via the urethra into his bladder and into the ureteral orifice navigating it with ease up into the mid proximal ureter as evidenced fluoroscopically. Along the en tirety of the way, no calculus was observed and no sign of ureteral injury or obstruction. As a resu lt, I surveyed as high as his system would allow without undue stress, and at just distal to the UPJ in the proximal ureter, with his kidney decompressing and the ureter papa, no stone was ever o bserved; so, I backed the ureteroscope with the collecting system, decompressing the entire time down into the mid and distal ureter on the way out and did not observe any stone again. As a result, I r emoved the ureteroscope and backloaded the cystoscope over the safety wire passing a 6-Nigerien x 28 cm double-J ureteral stent left on its tether into the upper pole of his left kidney before backing out the wire and coiling the stent within the upper pole calyx. A coil was formed cystoscopically in hi s bladder, and the bladder was decompressed of fluid and urine. I then secured the tether for the st ent to his glans penis and the preputial margin using Mastisol and Steri-Strips. He was then taken o ut of the lithotomy position, awakened from general anesthesia, transferred to a stretcher, and then transferred to the recovery room in good condition. Complications: None. Discharge Disposition: He may have the ureteral stent removed on Wednesday in the [facility]. He m ay potentially have it removed on if he prefers. I will give him a prescription for an aurea tional few days of antimicrobial to decrease the risk of infection, pending stent extraction. Subseq uent followup should be established in about 2-3 months and he should perform a [employer] metabolic p rofile assessment with 2 urine collections in about 1 month in preparation for that followup. WR/MODL Voice ID: [id number] Report ID: [id number]
[2023-03-09] MEDS ORDERED: PROMETHAZINE INJ 25 MG/ML AMP ONE (12:10)
[2023-03-09 14:45] VITALS: BP 130/77; TEMP 96.6; O2SAT 98
== END 2023-03-09 12:39 | disposition home or self-care (01) ==
LOC: OR 07:31
PROVIDERS: ATTEND Urology
PROC: 0T778DZ Dilation of Left Ureter with Intraluminal Device, Via Natural or Artificial Opening Endoscopic (ICD-10-PCS; principal; 2023-03-09 08:45)
DX: N20.2 Calculus of kidney with calculus of ureter (principal); F41.9 Anxiety disorder, unspecified; F32.A Depression, unspecified
CPT/HCPCS: 87088; 87086; 74450; 51610; 52351; 52332; J2550; J2704; J2710; J2001; J2250; J3010; J1100; J2175; J2405 ×2; J7120